=== PATIENT | female | born 1985 | race Two or more races ===

== ENCOUNTER 2019-04-03 13:32 | Emergency (ER) | payer MEDICAID ==
[~2019-04-03] VITALS: Ht 162.6 cm; Wt 88.9 kg
[2019-04-03 19:15] VITALS: BP 123/79
== END 2019-04-03 19:34 | disposition home or self-care (01) ==
LOC: ER 13:36
DX: O21.8 Other vomiting complicating pregnancy (principal); O23.42 Unspecified infection of urinary tract in pregnancy, second trimester; Z3A.20 20 weeks gestation of pregnancy
CPT/HCPCS: 36415; 76801; 84702

== ENCOUNTER 2019-06-21 09:51 | Emergency (ER) | payer MEDICAID ==
[~2019-06-21] VITALS: Ht 165.1 cm; Wt 86.2 kg
[2019-06-21 10:28] VITALS: BP 122/69
[2019-06-21 11:18] LABS: Urine Bacteria NONE SEEN /hpf (None Seen); Urine Blood Negative /uL (Negative); Urine Mucus FEW (None Seen); Urine Specific Gravity 1.022 (1.001-1.035); Urine WBC 3 /hpf (0 - 5)
== END 2019-06-21 12:00 | disposition home or self-care (01) ==
LOC: ER 09:51
DX: N39.0 Urinary tract infection, site not specified (principal)
CPT/HCPCS: 81001; 81025; 82962

== ENCOUNTER 2019-06-28 08:20 | Observation (INO) | payer MEDICAID ==
[2019-06-28] MEDS ORDERED: PREN-96 PO (11:09)
== END 2019-06-28 10:55 | disposition home or self-care (01) | DRG 566 ==
LOC: LDRP 08:20
PROVIDERS: ADMIT Specialist; ATTEND Specialist
DX: O24.410 Gestational diabetes mellitus in pregnancy, diet controlled (principal); O09.213 Supervision of pregnancy with history of pre-term labor, third trimester; Z3A.32 32 weeks gestation of pregnancy
CPT/HCPCS: 59025; 76818; 81002; 82948; G0378

== ENCOUNTER 2019-07-05 11:35 | Observation (INO) | payer MEDICAID ==
[~2019-07-05] VITALS: Ht 165.1 cm; Wt 98.4 kg
[~2019-07-05 11:35] MED LIST: PREN-96 PO
[2019-07-06] MEDS ORDERED: LACTATED RINGER'S 1,000 ML IV ONE (12:30)
[2019-07-06] MEDS ORDERED: ACCU-CHEK COMFORT CURVE STRIP VI ONE (12:30)
[2019-07-06] MEDS ORDERED: TERBUTALINE SULFATE 1 MG/ML 1ML VIAL SC ONE (13:30)
== END 2019-07-06 15:10 | disposition home or self-care (01) | DRG 566 ==
LOC: UNDOADMOB 11:35 → LDRP 11:35
PROVIDERS: ADMIT Specialist; ATTEND Specialist
DX: O36.5920 Maternal care for other known or suspected poor fetal growth, second trimester, not applicable or unspecified (principal); O60.03 Preterm labor without delivery, third trimester; O24.419 Gestational diabetes mellitus in pregnancy, unspecified control; O99.89 Other specified diseases and conditions complicating pregnancy, childbirth and the puerperium; H53.8 Other visual disturbances; Z3A.33 33 weeks gestation of pregnancy
CPT/HCPCS: 59025; 76818; 81002; 82948; 96372; G0378; J3105; 96361; 96366

== ENCOUNTER 2019-07-11 10:39 | Observation (INO) | payer MEDICAID | END 2019-07-11 12:40 | disposition home or self-care (01) | DRG 566 | LOC: LDRP 10:39 | PROVIDERS: ADMIT Specialist; ATTEND Specialist | DX: O24.419 Gestational diabetes mellitus in pregnancy, unspecified control (principal); O36.5930 Maternal care for other known or suspected poor fetal growth, third trimester, not applicable or unspecified; Z3A.34 34 weeks gestation of pregnancy | CPT/HCPCS: 59025; 76818; 81002; 82962; G0378 ==

== ENCOUNTER → 2019-07-12 | Outpatient (CLI) | payer MEDICAID | END | disposition home or self-care (01) | LOC: LAB 11:18 | PROVIDERS: ATTEND Specialist | DX: N39.0 Urinary tract infection, site not specified (principal) | CPT/HCPCS: 87086 ==

== ENCOUNTER 2019-07-14 11:09 | Observation (INO) | payer MEDICAID ==
[~2019-07-14] VITALS: Ht 157.5 cm; Wt 95.3 kg
[2019-07-14] MEDS ORDERED: TERBUTALINE SULFATE 1 MG/ML 1ML VIAL SC ONE (13:00)
== END 2019-07-14 13:50 | disposition home or self-care (01) | DRG 563 ==
LOC: LDRP 11:09
PROVIDERS: ADMIT Obstetrics & Gynecology; ATTEND Obstetrics & Gynecology
DX: O60.03 Preterm labor without delivery, third trimester (principal); O24.419 Gestational diabetes mellitus in pregnancy, unspecified control; O36.5930 Maternal care for other known or suspected poor fetal growth, third trimester, not applicable or unspecified; Z87.59 Personal history of other complications of pregnancy, childbirth and the puerperium; Z3A.35 35 weeks gestation of pregnancy
CPT/HCPCS: 59025; 76818; 81002; 82948; 82962; 96372; G0378; J3105

== ENCOUNTER 2019-07-16 16:55 | Observation (INO) | payer MEDICAID | END 2019-07-16 18:27 | disposition home or self-care (01) | DRG 566 | LOC: LDRP 16:55 | PROVIDERS: ADMIT Obstetrics & Gynecology; ATTEND Obstetrics & Gynecology | DX: O62.9 Abnormality of forces of labor, unspecified (principal); O24.410 Gestational diabetes mellitus in pregnancy, diet controlled; Z3A.35 35 weeks gestation of pregnancy | CPT/HCPCS: 59025; 76818; 81002; 82948; 82962; G0378 ==

== ENCOUNTER 2019-07-21 09:30 | Observation (INO) | payer MEDICAID ==
[2019-07-21 12:45] LABS: Protein, Urine 8.1 mg/dL (0.0-11.9)
[2019-07-21 12:52] LABS: 24 Hr. Total Protein, Urine 117.4 mg/24 Hr (<149.1)
== END 2019-07-21 12:40 | disposition home or self-care (01) | DRG 566 ==
LOC: LDRP 09:30
PROVIDERS: ADMIT Obstetrics & Gynecology; ATTEND Obstetrics & Gynecology
DX: O24.419 Gestational diabetes mellitus in pregnancy, unspecified control (principal); Z3A.36 36 weeks gestation of pregnancy
CPT/HCPCS: 59025; 76818; 81002; 82948; 82962; 84156; G0378

== ENCOUNTER 2019-07-25 11:00 | Observation (INO) | payer MEDICAID | END 2019-07-25 12:14 | disposition home or self-care (01) | DRG 566 | LOC: LDRP 11:00 | PROVIDERS: ADMIT Obstetrics & Gynecology; ATTEND Obstetrics & Gynecology | DX: O24.419 Gestational diabetes mellitus in pregnancy, unspecified control (principal); Z3A.36 36 weeks gestation of pregnancy | CPT/HCPCS: 59025; 76818; 81002; 82948; 82962; G0378 ==

== ENCOUNTER 2019-07-28 11:18 | Observation (INO) | payer MEDICAID | END 2019-07-28 14:35 | disposition home or self-care (01) | DRG 566 | LOC: LDRP 11:18 | PROVIDERS: ADMIT Specialist; ATTEND Specialist | DX: O24.419 Gestational diabetes mellitus in pregnancy, unspecified control (principal); Z3A.37 37 weeks gestation of pregnancy | CPT/HCPCS: 59025; 76818; 81002; 82948; 82962; G0378 ==

== ENCOUNTER 2019-08-03 12:49 | Observation (INO) | payer MEDICAID | END 2019-08-03 15:37 | disposition home or self-care (01) | DRG 566 | LOC: LDRP 12:49 | PROVIDERS: ADMIT Obstetrics & Gynecology; ATTEND Obstetrics & Gynecology | DX: O24.410 Gestational diabetes mellitus in pregnancy, diet controlled (principal); Z3A.37 37 weeks gestation of pregnancy | CPT/HCPCS: 59025; 76818; 81002; 82948; 82962; G0378 ==

== ENCOUNTER 2019-08-04 11:43 | Inpatient (IN) | payer MEDICAID ==
[~2019-08-04] VITALS: Ht 30.5 cm; Wt 0.5 kg
[2019-08-04] MEDS ORDERED: LACT. RINGERS/OXYTOCIN 20UNITS 1,000 ML IV ONE (11:54)
[2019-08-04] MEDS ORDERED: LIDOCAINE 2%HCL (LOCAL ANESTH.) INJ 20ML MDV ONE (11:54)
[2019-08-04] MEDS ORDERED: OXYTOCIN 10UNIT/ML 1ML VIAL ONE (11:57)
[2019-08-04] MEDS ORDERED: LACT. RINGERS/OXYTOCIN 20UNITS 1,000 ML IV SCH (12:25)
[2019-08-04] MEDS ORDERED: PHISODERM TOP SOLN 240ML BTL TOP PRN (12:30)
[2019-08-04] MEDS ORDERED: DERMOPLAST 60ML BOTTLE TOP PRN (12:30)
[2019-08-04] MEDS ORDERED: WITCH HAZEL-GLYCERIN PAD TOP PRN (12:30)
[2019-08-04 12:43] LABS: Urine Bacteria NONE SEEN /hpf (None Seen); Urine Blood Negative /uL (Negative); Urine Mucus FEW (None Seen); Urine Specific Gravity 1.019 (1.001-1.035); Urine WBC 1 /hpf (0 - 5)
[2019-08-04 12:59] LABS: Basophils # (auto) 0 uL; Basophils % (auto) 0.3 % (0.0-2.0); Eosinophils # (auto) 0 uL; Eosinophils % (auto) 0.1 % (0.0-7.0); Hematocrit 35.7 % (36.0-46.0); Hemoglobin 12.2 g/dL (12.2-16.2); Lymphocytes # (auto) 1.1 uL; Lymphocytes % (auto) 8.2 % (10.0-50.0); Mean Corpuscular Hemoglobin 29.8 pg (28.0-32.0); Mean Corpuscular Hgb Conc. 34.1 g/dL (32.0-36.0); Mean Corpuscular Volume 87.3 fL (80.0-100.0); Monocytes # (auto) 0.6 uL; Monocytes % (auto) 4.6 % (0.0-12.0); Neutrophils % (auto) 86.8 % (37.0-80.0); Platelet Count (auto) 233 10^3/uL (140-450); Red Blood Cells 4.09 10^6/uL (4.0-5.20); Red Cell Distribution Width 13.6 % (11.8-14.3); White Blood Cell 13.9 10^3/uL (4.4-10.8)
[2019-08-04 13:12] LABS: Albumin 2.8 g/dL (3.4-5.0); Calcium 8.5 mg/dL (8.5-10.1); Potassium 3.9 mmol/L (3.5-5.1)
[2019-08-04 13:13] LABS: INR 0.97 (0.9-1.15); Partial Thromboplastin Time 28.8 sec (23.64-32.05)
[2019-08-04 13:15] LABS: BUN/Creatinine Ratio 12.7; Bilirubin, Total 0.3 mg/dL (0.2-1.0); Total Protein 7.1 g/dL (6.4-8.2)
--- NOTE | 2019-08-04 15:10 | NUR ---
Ambulation: Patient OOB with standby assistance by RN. Patient ambulated to bathroom with steady gait. Patient unable to void at this time. [facility] teaching provided with returned demonstration by patient. Clean gown provided and bed linen changed. Patient ambulated back to bed with steady gait and no distress noted.
--- NOTE | 2019-08-04 15:33 | NUR ---
PT and baby transferred to room 107B PT was ambulatory and in open crib, both in stable condition with all belongings
--- NOTE | 2019-08-04 17:29 | NUR ---
PT voided but hat completely in toilet so volume unknown but PT states she definitely voided
[2019-08-04 19:00] VITALS: BP 127/69
[2019-08-04] MEDS ORDERED: INFLUENZA QUAD 2019-2020 0.5ml SYRG IM ONE (20:30)
[2019-08-04] MEDS ORDERED: TETANUS-DIPTH-ACEL PERTUSSIS 0.5ML SYRG IM ONE (20:30)
[2019-08-04 20:48] LABS: Alcohol, Urine < 3.0 mg/dL (0-5); Amphetamine Screen, Urine NEGATIVE (NEGATIVE); Barbiturate Scree,Urine NEGATIVE (NEGATIVE); Benzodiazephine Screen, Urine NEGATIVE (NEGATIVE); Cannabinoid Screen, Urine NEGATIVE (NEGATIVE); Cocaine Screen, Urine NEGATIVE (NEGATIVE); Opiate Scree,Urine NEGATIVE (NEGATIVE); Phencyclidine Screen, Urine NEGATIVE (NEGATIVE)
[2019-08-04] MEDS: IBUPROFEN 600 MG TAB PO PRN (22:21)
[2019-08-04 22:39] VITALS: BP 126/68
[2019-08-05 02:50] VITALS: BP 111/52
[2019-08-05 07:00] VITALS: BP 107/66
[2019-08-05] MEDS: IBUPROFEN 600 MG TAB PO PRN ×2 (07:13→15:19)
--- NOTE | 2019-08-05 09:03 | NUR ---
DROP WIRE ALIGNER PAGED DROP WIRE ALIGNER REGARDING CONSULT, AWAITING CALL BACK.
--- NOTE | 2019-08-05 09:12 | NUR ---
DR. STREETER AT PT BEDSIDE FOR ASSESSMENT. DR. STREETER NOTIFIED OF PTS FASTING SERUM BLOOD GLUCOSE OF 83 MG/DL. PER DR. STREETER, FASTING BLOOD GLUCOSE CHECKS ARE COMPLETED. PER PT REQUEST, PT CAN BE DISCHARGED TOMORROW PER PATIENT REQUEST. WILL CONTINUE TO MONITOR.
--- NOTE | 2019-08-05 09:13 | NUR ---
SCRUFF WORKER MARISSA GREGORIO FROM [employer] CALLED BACK REGARDING CONSULT. Sid GREGORIO TRANSFERRED INTO ROOM 107B TO TALK WITH PATIENT, [employer] AND [employer]QUE[employer] REPAIRER MICHELLE COKE CRANE OPERATOR AT PT BEDSIDE TRANSLATING FOR PATIENT. PER MARISSA GREGORIO, PT HAS A CAR SEAT, HAS RESOURCES AND ALL NECESSARY SUPPLIES TO CARE FOR AND GOOD FAMILY SUPPORT, PT IS CLEARED FROM SCRUFF WORKER FOR DISCHARGE. DR. STREETER NOTIFIED. WILL CONTINUE TO MONITOR.
[2019-08-05 11:20] VITALS: BP 110/62
[2019-08-05 15:10] VITALS: BP 123/65
[2019-08-05 19:00] VITALS: BP 120/69
[2019-08-05 23:00] VITALS: BP 123/76
[2019-08-06 02:50] VITALS: BP 125/72
[2019-08-06] MEDS: IBUPROFEN 600 MG TAB PO PRN (07:08)
[2019-08-06 07:12] VITALS: BP 113/64
--- NOTE | 2019-08-06 09:28 | NUR ---
Discharge: Discharge instructions given as ordered. Pt encouraged to follow up with [facility] as instructed. All questions and concerns addressed. Patient verbalized understanding. Medication reconciliation completed and copy given to patient. All required/requested vaccines given and copies of vaccinations given to patient. Patient encouraged to prepare to depart unit. Translated by [employer]
[2019-08-06 11:20] VITALS: BP 133/73
--- NOTE | 2019-08-06 13:00 | NUR ---
Discharge: ID bands matched and ID verification form signed and witnessed. One ID band was removed and placed in chart. Infant taken to vehicle, accompanied by staff, mother of baby, and family member along with all personal belongings. secured in rear-facing car seat by parent and verified by staff. No distress or adverse changes in status since initial assessment was noted at time of departure.
[2019-08-07 10:49] LABS: RPR Non Reactive (Non Reactive)
--- NOTE | 2019-08-07 11:14 | NUR ---
professor of communication 08/05/19 While professor of communication I received a page from Paula HINOJOSA stating patient has a social service consult for being a [place] speaker from [place] with no education. Paula informed me there is no red flags. Patient is able to care for infant. Patient has all provisions for the infant. Patient has good family support. Patient lives home with her and children and is independent. Patient has WIC for her previous children. Patient will return home with her and children. Per Vanessa infant hearing screen manager solar who was translating for us, patient is very appropriate. Patient has no needs or concerns. Patient is clear on social service stand point. No need for consult. Addendum: 08/07/19 at 1122 by Jamia SHAW Amended: Links added.
== END 2019-08-06 12:50 | disposition home or self-care (01) | DRG 560 ==
LOC: OBSVTOIN 11:43 → LDRP 11:43
PROVIDERS: ADMIT Specialist; ATTEND Specialist
PROC: 0HQ9XZZ Repair Perineum Skin, External Approach (ICD-10-PCS; principal; 2019-08-04)
PROC: 10D07Z6 Extraction of Products of Conception, Vacuum, Via Natural or Artificial Opening (ICD-10-PCS; 2019-08-04)
DX: O24.429 Gestational diabetes mellitus in childbirth, unspecified control (principal); O66.5 Attempted application of vacuum extractor and forceps; O70.0 First degree perineal laceration during delivery; Z37.0 Single live birth; Z3A.38 38 weeks gestation of pregnancy
CPT/HCPCS: 36415; 59025; 59409; 76818; 80053; 80307; 81001; 81002; 82947; 82948; 82962; 84112; 85025; 85610; 85730; 86592; 86850; 86900; 86901; 90472; 90715; 96361; 96366; 96372; G0378; J2590

== ENCOUNTER 2025-06-02 15:31 | Emergency (ER) | payer MEDICAID ==
[~2025-06-02] VITALS: Ht 167.6 cm; Wt 83.0 kg
[2025-06-02 17:03] VITALS: BP 120/79; PULSE 78; RESP 17; TEMP 98; O2SAT 100
== END 2025-06-02 18:10 | disposition left against medical advice (07) ==
LOC: ER 15:31
DX: Z48.00 Encounter for change or removal of nonsurgical wound dressing (principal); Z79.899 Other long term (current) drug therapy